=== PATIENT | female | born 1950 | race Caucasian/White ===

== ENCOUNTER 2021-04-03 12:40 | Outpatient (CLI) | payer MEDICARE | END 2021-04-03 12:41 | disposition home or self-care (01) | LOC: CSHWCC 12:40 | PROVIDERS: ATTEND Nurse Practitioner Family | DX: S81.801D Unspecified open wound, right lower leg, subsequent encounter (principal) ==

== ENCOUNTER 2021-04-10 12:50 | Outpatient (CLI) | payer MEDICARE | END 2021-04-10 12:51 | disposition home or self-care (01) | LOC: CSHWCC 12:50 | PROVIDERS: ATTEND Nurse Practitioner Family | DX: S81.801D Unspecified open wound, right lower leg, subsequent encounter (principal) | CPT/HCPCS: 97139; 97607; G0463; 99211 ==

== ENCOUNTER 2021-05-01 15:08 | Outpatient (CLI) | payer MEDICARE | END 2021-05-01 15:09 | disposition home or self-care (01) | LOC: CSHWCC 15:08 | PROVIDERS: ATTEND Nurse Practitioner Family | DX: S81.801D Unspecified open wound, right lower leg, subsequent encounter (principal) | CPT/HCPCS: 99213; G0463 ==

== ENCOUNTER 2021-07-04 12:49 | Outpatient (CLI) | payer MEDICARE | END 2021-07-04 12:50 | disposition home or self-care (01) | LOC: CSHWCC 12:49 | PROVIDERS: ATTEND Nurse Practitioner Family | DX: S81.802D Unspecified open wound, left lower leg, subsequent encounter (principal) | CPT/HCPCS: 97139; G0463; 99212 ==

== ENCOUNTER 2021-10-15 13:00 | Outpatient (CLI) | payer MEDICARE | END 2021-10-15 13:01 | disposition home or self-care (01) | LOC: CSHWCC 13:00 | PROVIDERS: ATTEND Nurse Practitioner Family | DX: S81.801D Unspecified open wound, right lower leg, subsequent encounter (principal) | CPT/HCPCS: 99213; G0463 ==

== ENCOUNTER 2024-01-26 14:46 | Outpatient (CLI) | payer MEDICARE | END 2024-01-26 14:47 | disposition home or self-care (01) | LOC: CSHULT 14:46 | PROVIDERS: ATTEND Nurse Practitioner | DX: M79.651 Pain in right thigh (principal); I82.491 Acute embolism and thrombosis of other specified deep vein of right lower extremity ==

== ENCOUNTER 2024-01-26 15:31 | Emergency (ER) | payer MEDICARE ==
[2024-01-26 17:02] LABS: #Basophils 0.11 10x3/uL (0.0-0.2); #Eosinophils 0.12 10x3/uL (0.0-0.5); #Monocytes 0.62 10x3/uL (0.0-1.1); #Neutrophils 7.34 10x3/uL (1.5-8.4); %Basophils 1.2 % (0.0-2.0); %Eosinophils 1.3 % (0.0-6.0); %Lymphocytes 10.3 % (18.0-47.0); %Monocytes 6.8 % (0.0-10.0); %Neutrophils 80.1 % (40.0-75.0); Hemoglobin 12.2 g/dL (12.0-15.5); Mean Corpuscular HGB CONC 31.3 g/dL (32.0-36.0); Mean Corpuscular Hemoglobin 26.4 pg (27.0-33.0); Mean Corpuscular Volume 84.4 fL (81.6-98.3); Mean Platelet Volume 12.1 fL (7.4-10.4); Platelet Count 161 10x3/uL (150-450); RBC Distribution Width 17.5 % (11.5-14.5); Red Blood Cell (RBC) Count 4.62 10x6/uL (3.90-5.03); White Blood Cell (WBC) Count 9.2 10x3/uL (3.5-10.5)
[2024-01-26 17:08] LABS: INR-International Normal Ratio 1.1; PTT 27.9 sec (22.0-33.0); Prothrombin Time 11.8 sec (9.5-12.1)
[2024-01-26 17:11] LABS: ALT (SGPT) 17 U/L (8-55); AST (SGOT) 20 U/L (5-34); Albumin 4.1 g/dL (3.4-4.8); Alkaline Phosphatase 53 U/L (40-110); Anion Gap 17 mmol/L (10-20); BUN (Urea Nitrogen) 39 mg/dL (9.8-20.1); Bilirubin, Total 0.5 mg/dL (0.2-1.2); Calc. Creatinine Clearance 0 mL/min (70-130); Calcium 9.7 mg/dL (7.8-10.44); Carbon Dioxide 23 mmol/L (23-31); Chloride 105 mmol/L (98-107); Estimated GFR 27; Globulin 2.6 g/dL (2.4-3.5); Glucose 98 mg/dL (83-110); Potassium 4.5 mmol/L (3.5-5.1); Protein, Total 6.7 g/dL (5.8-8.1); Sodium 140 mmol/L (136-145)
[2024-01-26] MEDS ORDERED: Heparin 10,000 UNITS/ 10 ML VIAL ONE (18:43)
[2024-01-26] MEDS ORDERED: Heparin 25,000 units/D5W 500 ML ONE (18:43)
== END 2024-01-26 19:41 | disposition short-term general hospital (02) ==
LOC: CSHERS 15:31
DX: I82.401 Acute embolism and thrombosis of unspecified deep veins of right lower extremity (principal); E11.9 Type 2 diabetes mellitus without complications
CPT/HCPCS: 71045; 80053; 85025; 85610; 85730; 93005; J1644 ×2; 36415; 96365; 96376

== ENCOUNTER 2025-01-12 15:30 | Outpatient (CLI) | payer MEDICARE | END 2025-01-12 15:31 | disposition home or self-care (01) | LOC: CSHULT 15:30 | PROVIDERS: ATTEND Internal Medicine | DX: I82.531 Chronic embolism and thrombosis of right popliteal vein (principal); I82.511 Chronic embolism and thrombosis of right femoral vein ==